=== PATIENT | male | born 1970 | race Caucasian/White ===

== ENCOUNTER 2023-09-29 14:27 | Inpatient (IN) | payer OTHER ==
[2023-09-29 16:40] VITALS: BMI 20.5
[2023-09-29] MEDS ORDERED: POLYETHYLENE GLYCOL (HEALTHYLAX) 3350 17 GM PACKET PO PRN (18:05)
[2023-09-29] MEDS ORDERED: hydrOXYzine PAMOATE 25 MG CAPSULE (FP) PO PRN (18:05)
[2023-09-29] MEDS ORDERED: NALOXONE HCL 0.4 MG/ML VIAL IM PRN (18:05)
[2023-09-29] MEDS ORDERED: BENZONATATE 200 MG CAPSULE PO PRN (18:05)
[2023-09-29] MEDS ORDERED: IBUPROFEN 400 MG TABLET (FP) PO PRN (18:05)
[2023-09-29] MEDS ORDERED: NALOXONE HCL (KLOXXADO) 8 MG SPRAY NS PRN (18:05)
[2023-09-29] MEDS ORDERED: guaiFENesin 600 MG TABLET.ER (FP) PO PRN (18:05)
[2023-09-29] MEDS ORDERED: BISMUTH SUBSALICYLATE 524 MG/30 ML PO PRN (18:05)
[2023-09-29] MEDS ORDERED: MAGNESIUM HYDROX 2400MG/30ML ORAL SUSPENSION 30 ML CUP PO PRN (18:05)
[2023-09-29] MEDS ORDERED: BENZOCAINE/MENTHOL (CHLORASEPTIC ) LOZENGE MM PRN (18:05)
[2023-09-29] MEDS ORDERED: MAG HYDROX/AL HYDROX/SIMETH 30 ML UNIT-DOSE CUP PO PRN (18:05)
[2023-09-29] MEDS ORDERED: LOPERAMIDE HCL 2 MG CAPSULE PO PRN (18:05)
[2023-09-29] MEDS ORDERED: DICYCLOMINE HCL 10 MG CAPSULE PO PRN (18:05)
[2023-09-29] MEDS ORDERED: ONDANSETRON *ODT* 4 MG TABLET SL PRN (18:05)
[2023-09-29] MEDS: THIAMINE 100 MG TABLET PO SCH (22:10)
[2023-09-29] MEDS: MELATONIN 5 MG TABLETS PO SCH (22:10)
[2023-09-30] MEDS ORDERED: diazePAM 5 MG TABLET PO PRN (09:39)
[2023-09-30] MEDS: diazePAM 5 MG TABLET PO SCH (10:42)
[2023-09-30] MEDS: PRENATAL VITAMINS W/ FOLIC ACID TABLET (FP) PO SCH (10:42)
[2023-09-30 11:53] LABS: CHLORIDE 107 mmol/L (98-107); POTASSIUM 4.4 mmol/L (3.5-5.1); SODIUM 137 mmol/L (136-145)
[2023-09-30 11:57] LABS: HEMATOCRIT 46.3 % (35.4-49); HEMOGLOBIN 15.8 GM/dL (11.7-16.9); MCH 30.5 pg (25.7-33.7); MCHC 34.1 g/dl (32.0-35.9); MEAN CELL VOLUME 89.4 fl (80-96); MEAN PLT VOLUME 7.7 fl (7.5-11.1); PLATELET COUNT 314 10^3/uL (134-434); RBC 5.18 M/mm3 (4.00-5.60); RDW 14.4 % (11.9-15.9); WHITE BLOOD COUNT 8.5 K/mm3 (4.0-10.0)
[2023-09-30 12:02] LABS: ALBUMIN 3.4 g/dl (3.4-5.0); ANION GAP 2 mmol/L (4-13); BLOOD UREA NITROGEN 12.8 mg/dL (7-18); CALCIUM 9.2 mg/dL (8.5-10.1); CO2 28 mmol/L (21-32); GLUCOSE,RANDOM 96 mg/dL (74-106)
[2023-09-30 12:05] LABS: CREATININE 0.7 mg/dL (0.55-1.3); SGOT/AST 18 U/L (15-37); SGPT/ALT 23 U/L (13-61)
[2023-09-30 12:07] LABS: BILIRUBIN,TOTAL 0.8 mg/dL (0.2-1); TOT PROT 6.8 g/dl (6.4-8.2)
[2023-09-30 12:08] LABS: ALK PHOS 77 U/L (45-117)
[2023-09-30] MEDS: BUPRENORPHINE/NALOXONE 2 MG/0.5 MG FILM PACKET SL SCH (12:50)
[2023-09-30] MEDS: IBUPROFEN 600 MG TABLET (FP) PO PRN (17:33)
[2023-10-01] MEDS: METHOCARBAMOL 500 MG TABLET PO PRN (05:29)
[2023-10-01] MEDS ORDERED: BUPRENORPHINE/NALOXONE 4 MG/1 MG FILM PACKET SL SCH (06:00)
[2023-10-01] MEDS: BUPRENORPHINE/NALOXONE 4 MG/1 MG FILM PACKET SL SCH (10:36)
[2023-10-01] MEDS ORDERED: cloNIDine HCL 0.1 MG TABLET PO PRN (14:43)
[2023-10-01] MEDS: ACETAMINOPHEN 325 MG TABLET (FP) PO PRN (17:20)
[2023-10-02] MEDS: diazePAM 5 MG TABLET PO SCH (05:25)
[2023-10-02 09:16] VITALS: BP 130/80; PULSE 84; RESP 18; TEMP 97.1
[2023-10-02] MEDS: BUPRENORPHINE/NALOXONE 8 MG/2 MG FILM PACKET SL SCH (09:17)
[2023-10-03] MEDS ORDERED: diazePAM 5 MG TABLET PO SCH (06:00)
[2023-10-04] MEDS ORDERED: diazePAM 5 MG TABLET PO ONE (06:00)
== END 2023-10-02 09:23 | disposition left against medical advice (07) | DRG 770 ==
LOC: YASAS 14:27 → Y3N 18:13
PROVIDERS: ADMIT Allergy & Immunology; ATTEND Surgery
PROC: HZ2ZZZZ Detoxification Services for Substance Abuse Treatment (ICD-10-PCS; principal; 2023-09-29)
DX: F10.230 Alcohol dependence with withdrawal, uncomplicated (principal); F11.20 Opioid dependence, uncomplicated; F14.20 Cocaine dependence, uncomplicated; F17.210 Nicotine dependence, cigarettes, uncomplicated; I10 Essential (primary) hypertension
CPT/HCPCS: 36415; 80053; 80305; 80307; 85027; 86780; 93005; 93010